=== PATIENT | female | born 1945 | race Caucasian/White ===

== ENCOUNTER 2019-02-21 19:43 | Emergency (ER) | payer OTHER, BC | END 2019-02-21 23:57 | disposition home or self-care (01) | LOC: JER 19:43 ==

== ENCOUNTER 2021-01-05 14:10 | Emergency (ER) | payer OTHER ==
[2021-01-05 14:37] VITALS: BP 157/79; PULSE 91; TEMP 98.4; BMI 18.8
[2021-01-05] MEDS ORDERED: IBUPROFEN 400 MG TABLET (FP) PO ONE ×2 (15:45→16:31)
== END 2021-01-05 16:53 | disposition home or self-care (01) ==
LOC: JER 14:10
DX: S20.221A Contusion of right back wall of thorax, initial encounter (principal)
CPT/HCPCS: 71046-TC-FY; 71101-TC-RT-FY; 99284-25

== ENCOUNTER 2021-04-25 17:20 | Inpatient (IN) | payer BC, OTHER ==
[2021-04-25 21:40] LABS: BASO % 0.5 % (0-2.0); HEMATOCRIT 37.2 % (32.4-45.2); HEMOGLOBIN 13.2 GM/dL (10.7-15.3); LYMPH % 9.2 % (8-40); MCH 32.8 pg (25.7-33.7); MCHC 35.5 g/dl (32.0-36.0); MEAN CELL VOLUME 92.4 fl (80-96); MEAN PLT VOLUME 7.1 fl (7.5-11.1); MONO % 10.1 % (3.8-10.2); NEUT % 80.2 % (42.8-82.8); PLATELET COUNT 300 10^3/uL (134-434); RBC 4.03 M/mm3 (3.60-5.2); WHITE BLOOD COUNT 10.9 K/mm3 (4.0-10.0)
[2021-04-25 21:43] LABS: INR 1.03 (0.83-1.09); PROTHROMBIN TIME (PATIENT) 12.4 SEC (9.7-13.0)
[2021-04-25 21:46] LABS: ACTIVATED PTT 33.6 SECONDS (25.2-36.5)
[2021-04-25 21:55] LABS: CHLORIDE 97 mmol/L (98-107); SODIUM 133 mmol/L (136-145)
[2021-04-25 21:57] LABS: CALCIUM 9.4 mg/dL (8.5-10.1)
[2021-04-25 21:58] LABS: ANION GAP 12 MMOL/L (8-16); CO2 25 mmol/L (21-32); GLUCOSE,RANDOM 86 mg/dL (74-106)
[2021-04-25 22:00] LABS: BLOOD UREA NITROGEN 15.4 mg/dL (7-18)
[2021-04-25 22:01] LABS: CREATININE 0.6 mg/dL (0.55-1.3); SGOT/AST 38 U/L (15-37); SGPT/ALT 26 U/L (13-61)
[2021-04-25 22:03] LABS: BILIRUBIN,TOTAL 0.6 mg/dL (0.2-1); TOT PROT 7.5 g/dl (6.4-8.2)
[2021-04-25 22:04] LABS: ALK PHOS 126 U/L (45-117)
[2021-04-25 22:18] LABS: EPI CELLS 11 /uL (0-25.1); HYALINE CASTS 0 /uL (0-3.1); PH,URINE 6.5 (5.0-8.0); URINE APPEARANCE CLEAR; URINE BACTERIA >9,000 /uL (0-1359); URINE BILIRUBIN NEGATIVE (NEGATIVE); URINE COLOR YELLOW; URINE GLUCOSE (UA) NEGATIVE (NEGATIVE); URINE KETONE NEGATIVE (NEGATIVE); URINE LEUK ESTERASE 2+ (NEGATIVE); URINE NITRITE POSITIVE (NEGATIVE); URINE PROTEIN NEGATIVE (NEGATIVE); URINE RBC 17 /uL (0-23.9); URINE WBC 76 /uL (0-25.8)
[2021-04-25] MEDS ORDERED: CEFTRIAXONE 1,000 MG in DEXTROSE 5%-WATER - 50 ML IVPB ONE (23:43)
[2021-04-25] MEDS ORDERED: CEFTRIAXONE 1 GM/50 ML BAG ONE (23:55)
[2021-04-26] MEDS ORDERED: levETIRAcetam 500 MG TABLET (FP) PO ONE ×2 (03:34→03:45)
[2021-04-26] MEDS ORDERED: SODIUM CHLORIDE 1,000 ML IV SCH (05:15)
[2021-04-26] MEDS ORDERED: cefTRIAXone SODIUM 1 GM VIAL ONE (08:33)
[2021-04-26] MEDS ORDERED: DEXTROSE 5%-WATER - 50 ML IVPB ONE (08:33)
[2021-04-26] MEDS ORDERED: PT OWN MED DRAWER 7, Y5N ONE ×2 (09:23→21:14)
[2021-04-26] MEDS: CEFTRIAXONE 1 GM in DEXTROSE 5%-WATER - 50 ML IVPB SCH (09:24)
[2021-04-26] MEDS: carBAMazepine XR 400 MG TAB.ER.12H PO SCH ×2 (11:21→21:38)
[2021-04-26] MEDS: levETIRAcetam 500 MG TABLET (FP) PO SCH (21:38)
[2021-04-26] MEDS ORDERED: levETIRAcetam 500 MG TABLET (FP) PO SCH (22:00)
[2021-04-27 06:51] LABS: HEMATOCRIT 31.7 % (32.4-45.2); HEMOGLOBIN 11.1 GM/dL (10.7-15.3); MCH 32.5 pg (25.7-33.7); MCHC 35.1 g/dl (32.0-36.0); MEAN CELL VOLUME 92.6 fl (80-96); MEAN PLT VOLUME 7.3 fl (7.5-11.1); PLATELET COUNT 255 10^3/uL (134-434); RBC 3.43 M/mm3 (3.60-5.2); RDW 12.8 % (11.6-15.6); WHITE BLOOD COUNT 5.2 K/mm3 (4.0-10.0)
[2021-04-27 07:15] LABS: BLOOD UREA NITROGEN 16.8 mg/dL (7-18); CALCIUM 8.1 mg/dL (8.5-10.1)
[2021-04-27 07:16] LABS: MAGNESIUM 1.9 mg/dL (1.8-2.4)
[2021-04-27 07:18] LABS: CREATININE 0.6 mg/dL (0.55-1.3)
[2021-04-27 07:20] LABS: BILIRUBIN,TOTAL 0.4 mg/dL (0.2-1); TOT PROT 5.8 g/dl (6.4-8.2)
[2021-04-27] MEDS ORDERED: DEXTROSE 5%-WATER - 50 ML IVPB ONE (09:54)
[2021-04-27] MEDS ORDERED: cefTRIAXone SODIUM 1 GM VIAL ONE (09:54)
[2021-04-27] MEDS ORDERED: PT OWN MED DRAWER 7, Y5N ONE ×2 (09:56→21:22)
[2021-04-27] MEDS: levETIRAcetam 500 MG TABLET (FP) PO SCH ×2 (10:41→21:33)
[2021-04-27] MEDS: carBAMazepine XR 400 MG TAB.ER.12H PO SCH ×2 (10:41→21:33)
[2021-04-27] MEDS: CEFTRIAXONE 1 GM in DEXTROSE 5%-WATER - 50 ML IVPB SCH (10:44)
[2021-04-28 07:49] LABS: BASO % 0.7 % (0-2.0); EOS % 0.6 % (0-4.5); HEMATOCRIT 33.5 % (32.4-45.2); HEMOGLOBIN 11.7 GM/dL (10.7-15.3); LYMPH % 13.6 % (8-40); MCH 32.1 pg (25.7-33.7); MEAN CELL VOLUME 91.8 fl (80-96); MEAN PLT VOLUME 7.4 fl (7.5-11.1); MONO % 9.1 % (3.8-10.2); PLATELET COUNT 273 10^3/uL (134-434); RBC 3.65 M/mm3 (3.60-5.2); RDW 12.7 % (11.6-15.6); WHITE BLOOD COUNT 5.4 K/mm3 (4.0-10.0)
[2021-04-28 08:01] LABS: CALCIUM 8.5 mg/dL (8.5-10.1)
[2021-04-28 08:02] LABS: ALBUMIN 3.3 g/dl (3.4-5.0); BLOOD UREA NITROGEN 10.3 mg/dL (7-18)
[2021-04-28 08:05] LABS: CREATININE 0.6 mg/dL (0.55-1.3)
[2021-04-28 08:06] LABS: BILIRUBIN,TOTAL 0.5 mg/dL (0.2-1)
[2021-04-28 08:07] LABS: TOT PROT 6.2 g/dl (6.4-8.2)
[2021-04-28 09:09] VITALS: BMI 16.6
[2021-04-28] MEDS ORDERED: DEXTROSE 5%-WATER - 50 ML IVPB ONE (09:38)
[2021-04-28] MEDS ORDERED: cefTRIAXone SODIUM 1 GM VIAL ONE (09:38)
[2021-04-28] MEDS ORDERED: PT OWN MED DRAWER 7, Y5N ONE ×3 (09:38→19:44)
[2021-04-28] MEDS: CEFTRIAXONE 1 GM in DEXTROSE 5%-WATER - 50 ML IVPB SCH (09:40)
[2021-04-28] MEDS: levETIRAcetam 500 MG TABLET (FP) PO SCH ×2 (09:41→21:39)
[2021-04-28] MEDS: carBAMazepine XR 400 MG TAB.ER.12H PO SCH ×2 (09:41→21:39)
[2021-04-29] MEDS ORDERED: PT OWN MED DRAWER 7, Y5N ONE ×2 (09:13→21:45)
[2021-04-29] MEDS ORDERED: cefTRIAXone SODIUM 1 GM VIAL ONE (09:14)
[2021-04-29] MEDS ORDERED: DEXTROSE 5%-WATER - 50 ML IVPB ONE (09:14)
[2021-04-29] MEDS: carBAMazepine XR 400 MG TAB.ER.12H PO SCH ×2 (09:17→21:46)
[2021-04-29] MEDS: levETIRAcetam 500 MG TABLET (FP) PO SCH ×2 (09:17→21:46)
[2021-04-30] MEDS ORDERED: PT OWN MED DRAWER 7, Y5N ONE (09:37)
[2021-04-30] MEDS: levETIRAcetam 500 MG TABLET (FP) PO SCH (09:58)
[2021-04-30] MEDS: carBAMazepine XR 400 MG TAB.ER.12H PO SCH (09:58)
[2021-04-30 10:22] VITALS: TEMP 98.1
[2021-04-30 16:33] VITALS: BP 123/67; PULSE 76
== END 2021-04-30 17:12 | DRG 689 ==
LOC: JER 17:20 → JERBED 04-26 02:05 → J4W 04-26 06:32
PROVIDERS: ADMIT Internal Medicine
DX: N39.0 Urinary tract infection, site not specified (principal); E43 Unspecified severe protein-calorie malnutrition; Z68.1 Body mass index [BMI] 19.9 or less, adult; R56.9 Unspecified convulsions; W19.XXXA Unspecified fall, initial encounter; G80.9 Cerebral palsy, unspecified; E78.5 Hyperlipidemia, unspecified
CPT/HCPCS: 36415; 70450-TC; 71045-TC-FY; 72125-TC; 72170-TC-FY; 80053; 80156; 81003; 82550; 82553; 83735; 84100; 84443; 84484; 85025; 85027; 85610; 85730; 86850; 86900; 86901; 87086; 87186; 93005; 93010; 97116-GP; 97161-GP; 99285-25; C9803; U0003; U0005

== ENCOUNTER 2021-07-29 12:31 | Emergency (ER) | payer OTHER ==
[2021-07-29 12:49] VITALS: TEMP 98.6; BMI 17.6
[2021-07-29] MEDS ORDERED: DIPHTH,PERTUSS(ACELL),TET 0.5 ML DISP.SYRIN IM ONE ×2 (13:16→14:25)
[2021-07-29 16:26] VITALS: BP 136/62; PULSE 90
== END 2021-07-29 16:30 | disposition home or self-care (01) ==
LOC: JER 12:31
PROC: 3E0233Z Introduction of Anti-inflammatory into Muscle, Percutaneous Approach (ICD-10-PCS; principal; 2021-07-29)
DX: S01.81XA Laceration without foreign body of other part of head, initial encounter (principal); W01.0XXA Fall on same level from slipping, tripping and stumbling without subsequent striking against object, initial encounter; Y93.01 Activity, walking, marching and hiking
CPT/HCPCS: 70450-TC; 72125-TC; 86922; 90471; 90715; 99284-25

== ENCOUNTER 2021-08-03 07:24 | Emergency (ER) | payer OTHER ==
[2021-08-03 07:31] VITALS: BP 163/63; PULSE 99; TEMP 97.9; BMI 17.6
== END 2021-08-03 08:44 | disposition home or self-care (01) ==
LOC: JERFT 07:24
DX: Z48.02 Encounter for removal of sutures (principal)
CPT/HCPCS: 99281-25

== ENCOUNTER 2021-12-25 07:33 | Emergency (ER) | payer OTHER ==
[2021-12-25 07:59] VITALS: BMI 21.1
[2021-12-25] MEDS ORDERED: SODIUM CHLORIDE 1,000 ML IV STA (08:06)
[2021-12-25 08:50] LABS: HEMATOCRIT 32.7 % (32.4-45.2); HEMOGLOBIN 11.4 GM/dL (10.7-15.3); MCH 31.3 pg (25.7-33.7); MCHC 34.9 g/dl (32.0-36.0); MEAN CELL VOLUME 89.6 fl (80-96); RBC 3.65 M/mm3 (3.60-5.2); WHITE BLOOD COUNT 2.8 K/mm3 (4.0-10.0)
[2021-12-25 08:51] LABS: BASO % 1.2 % (0-2.0); EOS % 0.6 % (0-4.5); LYMPH % 21.5 % (8-40); MEAN PLT VOLUME 6.7 fl (7.5-11.1); MONO % 12.2 % (3.8-10.2); NEUT % 64.5 % (42.8-82.8); PLATELET COUNT 288 10^3/uL (134-434); RDW 14.8 % (11.6-15.6)
[2021-12-25 08:59] LABS: INR 1.07 (0.83-1.09); PROTHROMBIN TIME (PATIENT) 12.3 SEC (9.7-13.0)
[2021-12-25 09:02] LABS: ACTIVATED PTT 34.5 SECONDS (25.2-36.5)
[2021-12-25 09:10] LABS: ALBUMIN 3.6 g/dl (3.4-5.0); BLOOD UREA NITROGEN 12.3 mg/dL (7-18); CALCIUM 9.2 mg/dL (8.5-10.1)
[2021-12-25 09:13] LABS: CREATININE 0.7 mg/dL (0.55-1.3)
[2021-12-25 09:14] LABS: TOT PROT 6.5 g/dl (6.4-8.2)
[2021-12-25 09:15] LABS: BILIRUBIN,TOTAL 0.4 mg/dL (0.2-1)
[2021-12-25 10:05] LABS: URINE APPEARANCE CLEAR; URINE BILIRUBIN NEGATIVE (NEGATIVE); URINE COLOR YELLOW; URINE GLUCOSE (UA) NEGATIVE (NEGATIVE); URINE KETONE NEGATIVE (NEGATIVE); URINE LEUK ESTERASE NEGATIVE (NEGATIVE); URINE NITRITE NEGATIVE (NEGATIVE); URINE PROTEIN NEGATIVE (NEGATIVE)
[2021-12-25] MEDS ORDERED: MAGNESIUM CITRATE 300 ML BOTTLE PO ONE (10:56)
[2021-12-25] MEDS ORDERED: SODIUM PHOSPHATE/NA BIPHOS 133 ML ENEMA PR ONE (10:56)
[2021-12-25] MEDS ORDERED: MAGNESIUM CITRATE 300 ML BOTTLE ONE (11:28)
[2021-12-25 14:02] VITALS: BP 136/79; PULSE 91; TEMP 98.3
== END 2021-12-25 14:40 | disposition home or self-care (01) ==
LOC: JER 07:33
PROC: 3E0337Z Introduction of Electrolytic and Water Balance Substance into Peripheral Vein, Percutaneous Approach (ICD-10-PCS; principal; 2021-12-25)
DX: K59.00 Constipation, unspecified (principal); K31.89 Other diseases of stomach and duodenum
CPT/HCPCS: 36415; 74018-TC-FY; 74177-TC; 80053; 81003; 82272; 83690; 84443; 85025; 85610; 85730; 86850; 86900; 86901; 93005; 93010; 96360; 99285-25; Q9967

== ENCOUNTER 2022-03-11 11:24 | Inpatient (IN) | payer OTHER ==
[2022-03-11 13:09] LABS: BASO % 0.4 % (0-2.0); EOS % 0.1 % (0-4.5); HEMATOCRIT 35.9 % (32.4-45.2); HEMOGLOBIN 12.4 GM/dL (10.7-15.3); LYMPH % 4.1 % (8-40); MCH 31.2 pg (25.7-33.7); MCHC 34.6 g/dl (32.0-36.0); MEAN CELL VOLUME 90.1 fl (80-96); MEAN PLT VOLUME 7.8 fl (7.5-11.1); MONO % 8.5 % (3.8-10.2); NEUT % 86.9 % (42.8-82.8); PLATELET COUNT 348 10^3/uL (134-434); RBC 3.99 M/mm3 (3.60-5.2); RDW 13.1 % (11.6-15.6)
[2022-03-11 13:30] LABS: CHLORIDE 99 mmol/L (98-107); SODIUM 134 mmol/L (136-145)
[2022-03-11 13:32] LABS: CALCIUM 9.5 mg/dL (8.5-10.1)
[2022-03-11 13:33] LABS: ALBUMIN 3.7 g/dl (3.4-5.0); ANION GAP 10 MMOL/L (8-16); BLOOD UREA NITROGEN 25.4 mg/dL (7-18); CO2 25 mmol/L (21-32); GLUCOSE,RANDOM 92 mg/dL (74-106)
[2022-03-11 13:34] LABS: MAGNESIUM 2.5 mg/dL (1.8-2.4)
[2022-03-11 13:36] LABS: CREATININE 0.7 mg/dL (0.55-1.3); PHOSPHOROUS 3.5 mg/dL (2.5-4.9); SGOT/AST 99 U/L (15-37); SGPT/ALT 38 U/L (13-61)
[2022-03-11 13:38] LABS: BILIRUBIN,TOTAL 0.8 mg/dL (0.2-1); TOT PROT 7.3 g/dl (6.4-8.2)
[2022-03-11 13:39] LABS: ALK PHOS 141 U/L (45-117)
[2022-03-11] MEDS ORDERED: ASPIRIN 81 MG CHEWABLE TABLETS PO ONE (14:35)
[2022-03-11] MEDS ORDERED: ASPIRIN 81 MG CHEWABLE TABLETS ONE (14:41)
[2022-03-11] MEDS ORDERED: SODIUM CHLORIDE 0.9% 500 ML INFUS.BAG IV ONE (17:15)
[2022-03-11] MEDS ORDERED: ACETAMINOPHEN 1000 MG/100 ML BAG IVPB ONE (17:27)
[2022-03-11] MEDS ORDERED: ACETAMINOPHEN INJECTION 100 ML IVPB ONE (17:41)
[2022-03-11] MEDS ORDERED: SODIUM CHLORIDE 0.9% 1000 ML INFUS.BAG IV ONE (17:48)
[2022-03-11 21:11] LABS: EPI CELLS >36 /uL (0-25.1); HYALINE CASTS 16 /uL (0-3.1); PH,URINE 5.5 (5.0-8.0); URINE APPEARANCE TURBID; URINE BACTERIA 939 /uL (0-1359); URINE BILIRUBIN NEGATIVE (NEGATIVE); URINE COLOR YELLOW; URINE GLUCOSE (UA) NEGATIVE (NEGATIVE); URINE KETONE 2+ (NEGATIVE); URINE LEUK ESTERASE 3+ (NEGATIVE); URINE NITRITE NEGATIVE (NEGATIVE); URINE PROTEIN 2+ (NEGATIVE); URINE RBC 372 /uL (0-23.9); URINE UROBILINOGEN 0.2 mg/dL (0.2-1.0); URINE WBC 12232 /uL (0-25.8)
[2022-03-12] MEDS ORDERED: cefTRIAXone SODIUM 1 GM VIAL ONE (09:24)
[2022-03-12] MEDS ORDERED: DEXTROSE 5%-WATER - 50 ML IVPB ONE (09:24)
[2022-03-12] MEDS: HEPARIN NA (PORCINE) 5,000 UNITS/ML 1ML VIAL SQ SCH ×2 (09:47→21:13)
[2022-03-12] MEDS: carBAMazepine XR 200 MG TAB.ER.12H PO SCH ×2 (09:48→22:05)
[2022-03-12] MEDS: ASPIRIN COATED 81 MG TABLET.EC PO SCH (09:48)
[2022-03-12] MEDS: CEFTRIAXONE 1 GM in DEXTROSE 5%-WATER - 50 ML IVPB SCH (09:48)
[2022-03-12] MEDS ORDERED: levETIRAcetam 250 MG TABLET PO SCH (10:00)
[2022-03-12 12:56] LABS: BASO % 0.3 % (0-2.0); EOS % 0.1 % (0-4.5); HEMATOCRIT 31.7 % (32.4-45.2); HEMOGLOBIN 10.8 GM/dL (10.7-15.3); LYMPH % 5.5 % (8-40); MCH 30.5 pg (25.7-33.7); MEAN CELL VOLUME 89.7 fl (80-96); MEAN PLT VOLUME 7.6 fl (7.5-11.1); MONO % 11.1 % (3.8-10.2); PLATELET COUNT 348 10^3/uL (134-434); RBC 3.53 M/mm3 (3.60-5.2); RDW 13.1 % (11.6-15.6); WHITE BLOOD COUNT 9.2 K/mm3 (4.0-10.0)
[2022-03-12 13:26] LABS: CHLORIDE 106 mmol/L (98-107); SODIUM 138 mmol/L (136-145)
[2022-03-12 13:28] LABS: ANION GAP 8 MMOL/L (8-16); CO2 24 mmol/L (21-32)
[2022-03-12 13:29] LABS: ALBUMIN 3.1 g/dl (3.4-5.0); GLUCOSE,RANDOM 127 mg/dL (74-106)
[2022-03-12 13:31] LABS: CREATININE 0.8 mg/dL (0.55-1.3); SGPT/ALT 30 U/L (13-61)
[2022-03-12 13:32] LABS: SGOT/AST 65 U/L (15-37)
[2022-03-12 13:33] LABS: BILIRUBIN,TOTAL 0.5 mg/dL (0.2-1); TOT PROT 6.3 g/dl (6.4-8.2)
[2022-03-12 13:41] LABS: ERYTHROCYTE SEDIMENTATION RATE 36 mm/hr (0-30)
[2022-03-12 13:55] LABS: ALK PHOS 110 U/L (45-117)
[2022-03-12] MEDS ORDERED: levETIRAcetam 500 MG/5 ML INJECTION VIAL IVPB ONE (16:50)
[2022-03-12] MEDS: levETIRAcetam 250 MG TABLET PO SCH (21:13)
[2022-03-13 07:18] LABS: BASO % 0.3 % (0-2.0); EOS % 0.2 % (0-4.5); HEMATOCRIT 41.1 % (32.4-45.2); HEMOGLOBIN 13.6 GM/dL (10.7-15.3); LYMPH % 14.3 % (8-40); MCH 30.7 pg (25.7-33.7); MCHC 33.2 g/dl (32.0-36.0); MEAN CELL VOLUME 92.5 fl (80-96); MEAN PLT VOLUME 8.3 fl (7.5-11.1); MONO % 13.4 % (3.8-10.2); NEUT % 71.8 % (42.8-82.8); PLATELET COUNT 202 10^3/uL (134-434); RBC 4.44 M/mm3 (3.60-5.2); RDW 13.5 % (11.6-15.6); WHITE BLOOD COUNT 6.6 K/mm3 (4.0-10.0)
[2022-03-13] MEDS ORDERED: cefTRIAXone SODIUM 1 GM VIAL ONE (08:16)
[2022-03-13] MEDS ORDERED: DEXTROSE 5%-WATER - 50 ML IVPB ONE (08:16)
[2022-03-13 08:30] LABS: CALCIUM 8.9 mg/dL (8.5-10.1)
[2022-03-13 08:31] LABS: ALBUMIN 3.2 g/dl (3.4-5.0); BLOOD UREA NITROGEN 21.4 mg/dL (7-18)
[2022-03-13 08:34] LABS: CREATININE 0.5 mg/dL (0.55-1.3)
[2022-03-13 08:35] LABS: BILIRUBIN,TOTAL 0.7 mg/dL (0.2-1); TOT PROT 6.3 g/dl (6.4-8.2)
[2022-03-13] MEDS: levETIRAcetam 250 MG TABLET PO SCH ×2 (09:01→21:47)
[2022-03-13] MEDS: HEPARIN NA (PORCINE) 5,000 UNITS/ML 1ML VIAL SQ SCH ×2 (09:01→21:47)
[2022-03-13] MEDS: CEFTRIAXONE 1 GM in DEXTROSE 5%-WATER - 50 ML IVPB SCH (09:02)
[2022-03-13] MEDS: carBAMazepine XR 200 MG TAB.ER.12H PO SCH ×2 (09:03→21:45)
[2022-03-13] MEDS: ASPIRIN COATED 81 MG TABLET.EC PO SCH (09:03)
[2022-03-13 15:54] VITALS: BMI 20.2
[2022-03-13] MEDS: AMINO ACIDS/PROTEIN HYDROLYS 30 ML LIQUID.PKT PO SCH (16:48)
[2022-03-14] MEDS ORDERED: DEXTROSE 5%-WATER - 50 ML IVPB ONE (07:31)
[2022-03-14] MEDS ORDERED: cefTRIAXone SODIUM 1 GM VIAL ONE (07:31)
[2022-03-14] MEDS: HEPARIN NA (PORCINE) 5,000 UNITS/ML 1ML VIAL SQ SCH ×2 (10:38→21:52)
[2022-03-14] MEDS: AMINO ACIDS/PROTEIN HYDROLYS 30 ML LIQUID.PKT PO SCH ×2 (10:38→18:51)
[2022-03-14] MEDS: ASPIRIN COATED 81 MG TABLET.EC PO SCH (10:39)
[2022-03-14] MEDS: carBAMazepine XR 200 MG TAB.ER.12H PO SCH ×2 (10:39→21:52)
[2022-03-14] MEDS: levETIRAcetam 250 MG TABLET PO SCH ×2 (10:39→21:52)
[2022-03-14] MEDS: CEFTRIAXONE 1 GM in DEXTROSE 5%-WATER - 50 ML IVPB SCH (10:40)
[2022-03-14] MEDS: MULTIVITAMINS (DAILY MVI) TABLET (FP) PO SCH (10:42)
[2022-03-14] MEDS: ASCORBIC ACID 500 MG TABLET (FP) PO SCH (10:43)
[2022-03-15] MEDS ORDERED: DEXTROSE 5%-WATER - 50 ML IVPB ONE (08:40)
[2022-03-15] MEDS ORDERED: cefTRIAXone SODIUM 1 GM VIAL ONE (08:40)
[2022-03-15] MEDS: AMINO ACIDS/PROTEIN HYDROLYS 30 ML LIQUID.PKT PO SCH ×2 (08:49→16:52)
[2022-03-15] MEDS: ASCORBIC ACID 500 MG TABLET (FP) PO SCH (08:59)
[2022-03-15] MEDS: HEPARIN NA (PORCINE) 5,000 UNITS/ML 1ML VIAL SQ SCH ×2 (08:59→21:36)
[2022-03-15] MEDS: MULTIVITAMINS (DAILY MVI) TABLET (FP) PO SCH (08:59)
[2022-03-15] MEDS: ASPIRIN COATED 81 MG TABLET.EC PO SCH (08:59)
[2022-03-15] MEDS: levETIRAcetam 250 MG TABLET PO SCH ×2 (08:59→21:36)
[2022-03-15] MEDS: carBAMazepine XR 200 MG TAB.ER.12H PO SCH ×2 (09:00→21:37)
[2022-03-15] MEDS: CEFTRIAXONE 1 GM in DEXTROSE 5%-WATER - 50 ML IVPB SCH (09:00)
[2022-03-16] MEDS ORDERED: cefTRIAXone SODIUM 1 GM VIAL ONE (08:45)
[2022-03-16] MEDS: AMINO ACIDS/PROTEIN HYDROLYS 30 ML LIQUID.PKT PO SCH ×2 (08:45→17:24)
[2022-03-16] MEDS ORDERED: DEXTROSE 5%-WATER - 50 ML IVPB ONE (08:45)
[2022-03-16] MEDS: ASCORBIC ACID 500 MG TABLET (FP) PO SCH (09:34)
[2022-03-16] MEDS: ASPIRIN COATED 81 MG TABLET.EC PO SCH (09:34)
[2022-03-16] MEDS: MULTIVITAMINS (DAILY MVI) TABLET (FP) PO SCH (09:34)
[2022-03-16] MEDS: CEFTRIAXONE 1 GM in DEXTROSE 5%-WATER - 50 ML IVPB SCH (09:34)
[2022-03-16] MEDS: levETIRAcetam 250 MG TABLET PO SCH ×2 (09:34→21:08)
[2022-03-16] MEDS: HEPARIN NA (PORCINE) 5,000 UNITS/ML 1ML VIAL SQ SCH ×2 (09:36→21:08)
[2022-03-16] MEDS: carBAMazepine XR 200 MG TAB.ER.12H PO SCH ×2 (09:36→21:09)
[2022-03-17 07:51] LABS: BASO % 0.5 % (0-2.0); EOS % 0.7 % (0-4.5); HEMATOCRIT 30.8 % (32.4-45.2); HEMOGLOBIN 10.7 GM/dL (10.7-15.3); LYMPH % 18.2 % (8-40); MCH 31.5 pg (25.7-33.7); MCHC 34.7 g/dl (32.0-36.0); MEAN PLT VOLUME 7.3 fl (7.5-11.1); MONO % 13.9 % (3.8-10.2); NEUT % 66.7 % (42.8-82.8); PLATELET COUNT 317 10^3/uL (134-434); RBC 3.39 M/mm3 (3.60-5.2); RDW 13.3 % (11.6-15.6); WHITE BLOOD COUNT 4.6 K/mm3 (4.0-10.0)
[2022-03-17 08:16] LABS: ALBUMIN 2.7 g/dl (3.4-5.0); BLOOD UREA NITROGEN 21.8 mg/dL (7-18); CALCIUM 8.6 mg/dL (8.5-10.1)
[2022-03-17 08:19] LABS: CREATININE 0.5 mg/dL (0.55-1.3)
[2022-03-17 08:21] LABS: BILIRUBIN,TOTAL 0.3 mg/dL (0.2-1); TOT PROT 5.5 g/dl (6.4-8.2)
[2022-03-17] MEDS ORDERED: DEXTROSE 5%-WATER - 50 ML IVPB ONE (09:49)
[2022-03-17] MEDS ORDERED: cefTRIAXone SODIUM 1 GM VIAL ONE (09:49)
[2022-03-17] MEDS: CEFTRIAXONE 1 GM in DEXTROSE 5%-WATER - 50 ML IVPB SCH (09:57)
[2022-03-17] MEDS: ASPIRIN COATED 81 MG TABLET.EC PO SCH (09:58)
[2022-03-17] MEDS: ASCORBIC ACID 500 MG TABLET (FP) PO SCH (09:58)
[2022-03-17] MEDS: AMINO ACIDS/PROTEIN HYDROLYS 30 ML LIQUID.PKT PO SCH ×2 (09:58→17:35)
[2022-03-17] MEDS: levETIRAcetam 250 MG TABLET PO SCH ×2 (09:58→21:11)
[2022-03-17] MEDS: MULTIVITAMINS (DAILY MVI) TABLET (FP) PO SCH (09:58)
[2022-03-17] MEDS: carBAMazepine XR 200 MG TAB.ER.12H PO SCH ×2 (09:59→21:12)
[2022-03-17] MEDS: HEPARIN NA (PORCINE) 5,000 UNITS/ML 1ML VIAL SQ SCH ×2 (09:59→21:15)
[2022-03-18] MEDS: ASCORBIC ACID 500 MG TABLET (FP) PO SCH (10:24)
[2022-03-18] MEDS: ASPIRIN COATED 81 MG TABLET.EC PO SCH (10:24)
[2022-03-18] MEDS: carBAMazepine XR 200 MG TAB.ER.12H PO SCH ×2 (10:25→21:44)
[2022-03-18] MEDS: HEPARIN NA (PORCINE) 5,000 UNITS/ML 1ML VIAL SQ SCH ×2 (10:25→21:43)
[2022-03-18] MEDS: AMINO ACIDS/PROTEIN HYDROLYS 30 ML LIQUID.PKT PO SCH ×2 (10:25→17:27)
[2022-03-18] MEDS: MULTIVITAMINS (DAILY MVI) TABLET (FP) PO SCH (10:25)
[2022-03-18] MEDS: levETIRAcetam 250 MG TABLET PO SCH ×2 (10:25→21:43)
[2022-03-19] MEDS: levETIRAcetam 250 MG TABLET PO SCH ×2 (10:18→21:27)
[2022-03-19] MEDS: MULTIVITAMINS (DAILY MVI) TABLET (FP) PO SCH (10:18)
[2022-03-19] MEDS: HEPARIN NA (PORCINE) 5,000 UNITS/ML 1ML VIAL SQ SCH ×2 (10:18→21:26)
[2022-03-19] MEDS: carBAMazepine XR 200 MG TAB.ER.12H PO SCH ×2 (10:18→21:29)
[2022-03-19] MEDS: ASPIRIN COATED 81 MG TABLET.EC PO SCH (10:18)
[2022-03-19] MEDS: AMINO ACIDS/PROTEIN HYDROLYS 30 ML LIQUID.PKT PO SCH ×2 (10:18→17:20)
[2022-03-19] MEDS: ASCORBIC ACID 500 MG TABLET (FP) PO SCH (10:19)
[2022-03-20] MEDS: HEPARIN NA (PORCINE) 5,000 UNITS/ML 1ML VIAL SQ SCH ×2 (09:51→21:10)
[2022-03-20] MEDS: levETIRAcetam 250 MG TABLET PO SCH ×2 (09:51→21:11)
[2022-03-20] MEDS: AMINO ACIDS/PROTEIN HYDROLYS 30 ML LIQUID.PKT PO SCH ×2 (09:51→17:25)
[2022-03-20] MEDS: carBAMazepine XR 400 MG TAB.ER.12H PO SCH ×2 (09:51→21:12)
[2022-03-20] MEDS: MULTIVITAMINS (DAILY MVI) TABLET (FP) PO SCH (09:52)
[2022-03-20] MEDS: ASPIRIN COATED 81 MG TABLET.EC PO SCH (09:52)
[2022-03-20] MEDS: ASCORBIC ACID 500 MG TABLET (FP) PO SCH (09:55)
[2022-03-21] MEDS: levETIRAcetam 250 MG TABLET PO SCH ×2 (09:15→21:18)
[2022-03-21] MEDS: ASPIRIN COATED 81 MG TABLET.EC PO SCH (09:15)
[2022-03-21] MEDS: AMINO ACIDS/PROTEIN HYDROLYS 30 ML LIQUID.PKT PO SCH ×2 (09:15→19:05)
[2022-03-21] MEDS: carBAMazepine XR 400 MG TAB.ER.12H PO SCH ×2 (09:15→21:48)
[2022-03-21] MEDS: MULTIVITAMINS (DAILY MVI) TABLET (FP) PO SCH (09:16)
[2022-03-21] MEDS: ASCORBIC ACID 500 MG TABLET (FP) PO SCH (09:16)
[2022-03-21] MEDS: HEPARIN NA (PORCINE) 5,000 UNITS/ML 1ML VIAL SQ SCH ×2 (09:16→21:18)
[2022-03-22] MEDS: MULTIVITAMINS (DAILY MVI) TABLET (FP) PO SCH (09:15)
[2022-03-22] MEDS: ASCORBIC ACID 500 MG TABLET (FP) PO SCH (09:15)
[2022-03-22] MEDS: ASPIRIN COATED 81 MG TABLET.EC PO SCH (09:15)
[2022-03-22] MEDS: HEPARIN NA (PORCINE) 5,000 UNITS/ML 1ML VIAL SQ SCH ×2 (09:16→21:56)
[2022-03-22] MEDS: AMINO ACIDS/PROTEIN HYDROLYS 30 ML LIQUID.PKT PO SCH ×2 (09:16→17:13)
[2022-03-22] MEDS: levETIRAcetam 250 MG TABLET PO SCH ×2 (09:16→21:56)
[2022-03-22] MEDS: carBAMazepine XR 400 MG TAB.ER.12H PO SCH ×2 (09:37→21:56)
[2022-03-23] MEDS: levETIRAcetam 250 MG TABLET PO SCH ×2 (08:32→12:51)
[2022-03-23] MEDS: ASPIRIN COATED 81 MG TABLET.EC PO SCH ×2 (08:32→12:49)
[2022-03-23] MEDS: AMINO ACIDS/PROTEIN HYDROLYS 30 ML LIQUID.PKT PO SCH (08:32)
[2022-03-23] MEDS: MULTIVITAMINS (DAILY MVI) TABLET (FP) PO SCH ×2 (08:33→12:51)
[2022-03-23] MEDS: ASCORBIC ACID 500 MG TABLET (FP) PO SCH ×2 (08:33→12:52)
[2022-03-23] MEDS: carBAMazepine XR 400 MG TAB.ER.12H PO SCH ×2 (08:33→12:52)
[2022-03-23] MEDS: HEPARIN NA (PORCINE) 5,000 UNITS/ML 1ML VIAL SQ SCH ×2 (08:33→12:49)
[2022-03-23 11:17] VITALS: TEMP 98.5
[2022-03-23 13:44] VITALS: PULSE 70
[2022-03-23 15:52] VITALS: BP 119/57
== END 2022-03-23 16:00 | DRG 100 ==
LOC: JER 11:24 → JERBED 17:18 → J2W 03-12 01:06
PROVIDERS: ADMIT Internal Medicine; ATTEND Internal Medicine
DX: R56.9 Unspecified convulsions (principal); U07.1 COVID-19; M62.82 Rhabdomyolysis; N39.0 Urinary tract infection, site not specified; I24.8 Other forms of acute ischemic heart disease; G81.91 Hemiplegia, unspecified affecting right dominant side; G93.40 Encephalopathy, unspecified; I25.10 Atherosclerotic heart disease of native coronary artery without angina pectoris; R55 Syncope and collapse; R27.0 Ataxia, unspecified
CPT/HCPCS: 36415; 70450-TC; 70486-TC; 71045-TC-FY; 72125-TC; 72128-TC; 72146-TC; 76705-TC; 80053; 80156; 80177; 81003; 82550; 82553; 82607; 82962; 83735; 84100; 84443; 84484; 85025; 85651; 86140; 87086; 87186; 93005; 93010; 93306-TC; 97116-GP; 97161-GP; 99285-25; C9803-CS; J1644; U0003; U0005

== ENCOUNTER 2025-03-16 22:22 | Emergency (ER) | payer OTHER ==
[2025-03-16 22:40] VITALS: RESP 16; BMI 21.4
[2025-03-16 23:15] LABS: ABSOLUTE IMMATURE GRANULOCYTES 0.04 x10^3/uL (0.0-0.031); BASOPHILS # 0.01 x10^3/uL (0.01-0.08); EOSINOPHIL % 0.1 % (0.7-5.8); EOSINOPHILS # 0.01 x10^3/uL (0.04-0.36); HEMATOCRIT 33.1 % (34.1-44.9); HEMOGLOBIN 10.9 g/dL (11.2-15.7); MCHC 32.9 g/dl (32.2-35.5); MEAN CELL VOLUME 94.3 fl (79.4-94.8); MEAN PLT VOLUME 8.2 fl (9.4-12.3); MONOCYTE # 1.11 x10^3/uL (0.24-0.86); MONOCYTE % 15.6 % (4.7-12.5); PLATELET COUNT 275 x10^3/uL (182-369); RDW 12.6 % (12.5-17.0)
[2025-03-16 23:24] LABS: INR 1.15 (0.83-1.09); PROTHROMBIN TIME (PATIENT) 12.7 SEC (9.7-13.0)
[2025-03-16 23:26] LABS: ACTIVATED PTT 33.9 SECONDS (25.2-36.5)
[2025-03-16 23:36] LABS: POTASSIUM 3.9 mmol/L (3.5-5.1)
[2025-03-16 23:38] LABS: ALBUMIN 3.6 g/dl (3.4-5.0); BLOOD UREA NITROGEN 21.5 mg/dL (7-18); CALCIUM 9.3 mg/dL (8.5-10.1); MAGNESIUM 2.2 mg/dL (1.8-2.4)
[2025-03-16] MEDS ORDERED: ACETAMINOPHEN INJECTION 100 ML ONE (23:38)
[2025-03-16 23:42] LABS: CREATININE 0.6 mg/dL (0.55-1.3)
[2025-03-16 23:43] LABS: BILIRUBIN,TOTAL 0.6 mg/dL (0.2-1); TOT PROT 6.4 g/dl (6.4-8.2)
[2025-03-16] MEDS: SODIUM CHLORIDE 0.9% 500 ML INFUS.BAG IV ONE (23:43)
[2025-03-16] MEDS: ACETAMINOPHEN 1000 MG/100 ML BAG IVPB ONE (23:43)
[2025-03-17] MEDS: DIPHTH,PERTUSS(ACELL),TET 0.5 ML DISP.SYRIN IM ONE (00:15)
[2025-03-17 01:10] VITALS: BP 140/88; PULSE 78; TEMP 98.1
[2025-03-17 02:16] LABS: EPI CELLS 9 /uL (0-25.1); HYALINE CASTS 0 /uL (0-3.1); PH,URINE 5.5 (5.0-8.0); URINE APPEARANCE CLEAR; URINE BACTERIA >9,000 /uL (0-1359); URINE BILIRUBIN NEGATIVE (NEGATIVE); URINE COLOR YELLOW; URINE GLUCOSE (UA) NEGATIVE (NEGATIVE); URINE KETONE TRACE (NEGATIVE); URINE LEUK ESTERASE TRACE (NEGATIVE); URINE NITRITE POSITIVE (NEGATIVE); URINE PROTEIN 1+ (NEGATIVE); URINE WBC 65 /uL (0-25.8)
[2025-03-17] MEDS ORDERED: CEFTRIAXONE 1 GM/50 ML BAG ONE (03:06)
[2025-03-17] MEDS: CEFTRIAXONE 1 GM in DEXTROSE 5%-WATER - 50 ML IVPB ONE (03:10)
[2025-03-17 05:41] LABS: URINE RBC 18.7 /uL (0-23.9)
== END 2025-03-17 04:23 ==
LOC: JER 22:22
PROC: 3E03329 Introduction of Other Anti-infective into Peripheral Vein, Percutaneous Approach (ICD-10-PCS; principal; 2025-03-16)
PROC: 3E033NZ Introduction of Analgesics, Hypnotics, Sedatives into Peripheral Vein, Percutaneous Approach (ICD-10-PCS; 2025-03-16)
DX: S10.91XA Abrasion of unspecified part of neck, initial encounter (principal); S40.212A Abrasion of left shoulder, initial encounter; R41.82 Altered mental status, unspecified; W19.XXXA Unspecified fall, initial encounter
CPT/HCPCS: 36415; 70450-TC; 71045-TC-FY; 72125-TC; 72170-TC-FY; 73030-TC-LT-FY; 80053; 81003; 83735; 84484; 85025; 85610; 85730; 86850; 86900; 86901; 87086; 93005; 93010; 96365; 96375; 99285-25